=== PATIENT | female | born 1970 | race Caucasian/White ===

== ENCOUNTER → 2017-06-21 13:30 | Outpatient (CLI) | payer BC ==
[2015-08-30 10:31] VITALS: BMI 24.5
[~2017-06-21 13:30] MED LIST: DYAZIDE 37.5/251 CAP PO; TOPAMAX25 MG PO
== END | disposition home or self-care (01) ==
LOC: D.MAMMO 10:15
DX: Z12.31 Encounter for screening mammogram for malignant neoplasm of breast (principal)

== ENCOUNTER → 2017-07-05 13:45 | Outpatient (CLI) | payer BC ==
[2015-08-30 10:31] VITALS: BMI 24.5
== END | disposition home or self-care (01) ==
LOC: D.MAMMO 11:15
DX: R92.8 Other abnormal and inconclusive findings on diagnostic imaging of breast (principal)

== ENCOUNTER 2017-07-29 13:44 | Emergency (ER) | payer BC ==
[2015-08-30 10:31] VITALS: BMI 24.5
== END 2017-07-29 15:28 | disposition home or self-care (01) ==
LOC: D.ER 13:44
DX: S80.12XA Contusion of left lower leg, initial encounter (principal); S80.02XA Contusion of left knee, initial encounter; S80.01XA Contusion of right knee, initial encounter; X58.XXXA Exposure to other specified factors, initial encounter; Y93.55 Activity, bike riding; Y92.410 Unspecified street and highway as the place of occurrence of the external cause

== ENCOUNTER → 2017-08-06 10:03 | Outpatient (CLI) | payer BC ==
[2015-08-30 10:31] VITALS: BMI 24.5
== END | disposition home or self-care (01) ==
LOC: D.US 10:03
DX: R60.0 Localized edema (principal)

== ENCOUNTER → 2018-08-13 16:36 | Outpatient (CLI) | payer BC ==
[2015-08-30 10:31] VITALS: BMI 24.5
== END | disposition home or self-care (01) ==
LOC: D.MAMMO 08:45
DX: Z12.31 Encounter for screening mammogram for malignant neoplasm of breast (principal)

== ENCOUNTER → 2019-04-30 07:19 | Outpatient (CLI) | payer BC ==
[2015-08-30 10:31] VITALS: BMI 24.5
== END | disposition home or self-care (01) ==
LOC: D.MRI 07:19
PROVIDERS: ATTEND Clinical Nurse Specialist Family Health
DX: M25.562 Pain in left knee (principal)

== ENCOUNTER 2020-05-14 09:30 | Outpatient (CLI) | payer BC ==
[2015-08-30 10:31] VITALS: BMI 24.5
== END 2020-05-14 10:30 | disposition home or self-care (01) ==
LOC: D.MAMMO 09:30
PROVIDERS: ATTEND Family Medicine
DX: Z12.31 Encounter for screening mammogram for malignant neoplasm of breast (principal)